=== PATIENT | male | born 2000 | race Caucasian/White ===

== ENCOUNTER 2022-06-23 08:56 | Emergency (ER) | payer MEDICAID, SELFPAY ==
--- NOTE | 2022-06-23 08:57 | ECG_ITS ---
[facility] Test Date: 2022-06-23 Pat Name: Eliel Frost Department: Room: Gender: Male Hand Finisher: : 2000 Requested By: Yanick Pelayo Order Number: [id number] Danica MD: Michael Bah M.D. Measurements Intervals [place] Rate: 73 P: 60 IN: 140 QRS: 58 QRSD: 95 T: 33 QT: 376 QTc: 415 Interpretive Statements SINUS RHYTHM No previous ECG available for comparison Electronically Signed On 06-23-2022 20:02:24 MARKET SPECIALIST by Michael Bah M.D. [id number]
[2022-06-23 09:23] VITALS: BP 117/75; PULSE 61; RESP 16; TEMP 36.9; O2SAT 100; BMI 22.6
[2022-06-23 10:03] LABS: Basophils % 0.5 %; Eosinophils % 0.7 %; Hematocrit 45.8 % (42.0-52.0); Hemoglobin 15.5 g/dL (11.7-16.6); Lymphocytes # 1.4 10^3/uL (0.8-4.8); Lymphocytes % 31.9 %; Mean Corpuscular HGB Conc 33.8 g/dL (30.0-36.0); Mean Corpuscular Hemoglobin 29.6 pg (28.0-34.0); Mean Corpuscular Volume 87.4 fl (80-94); Mean Platelet Volume 9.8 fL (7.4-10.4); Monocytes # 0.5 10^3/uL (0.2-0.9); Monocytes % 11.2 %; Neutrophils # 2.38 10^3/uL (1.8-7.7); Neutrophils % 55.5 %; Nucleated Red Blood Cells % 0 %; Platelet Count 212 10^3/cmm (130-400); Red Blood Count 5.24 10^6/uL (4.1-5.3); Red Cell Distribution Width 12.4 % (12.1-15.1); White Blood Count 4.3 10^3/uL (4.0-10.0)
[2022-06-23 10:15] LABS: Alanine Aminotransferase 13 U/L (0-41); Albumin Level 4.9 g/dL (3.5-5.2); Alkaline Phosphatase 91 U/L (40-130); Anion Gap 15.2 (5-19); Aspartate Amino Transferase 17 U/L (0-40); Blood Urea Nitrogen 15 mg/dL (6-20); Calcium 9.4 mg/dL (8.5-10.5); Carbon Dioxide 26 mmol/L (22-29); Chloride 101 mmol/L (98-107); Globulin 2.6 g/dL (1.3-4.6); Glomerular Filtration Rate 105.5 mL/min (90-130); Glucose 94 mg/dL (65-115); Osmolality Calculated 287 mOsm/kg (285-295); Potassium 4.2 mmol/L (3.5-5.1); Sodium 138 mmol/L (136-145); Total Bilirubin 0.5 mg/dL (0.15-1.2); Total Protein 7.5 g/dL (6.6-8.7)
[2022-06-23 10:54] VITALS: BP 129/74; PULSE 53; RESP 16; O2SAT 99
--- NOTE | 2022-06-23 10:54 | PC.NURSE ---
pt to triage for vital signs recheck. pt ambulatory with steady gait.
--- NOTE | 2022-06-23 11:45 | XR_ITS ---
WS: [id number] Portable AP upright chest, 06/23/2022 Clinical Data: Chest pain Comparison: None. Findings: No nodules, masses or effusions are seen. The heart is normal. The pulmonary vascularity is not increased. No pneumonia or pneumothorax is seen. XR/XR chest 1V portable [id number] Impression: Negative chest.
[2022-06-23 12:10] LABS: Troponin(5th) Baseline 6 ng/L (0-15)
--- NOTE | 2022-06-23 13:08 | W.ED.CHESTPA ---
Documented by User: Trista Dennis, PROGRAMMING DEVELOPMENT PROJECT MANAGER-C 06/23/22 13:38 HPI - Chest Pain General: Chief Complaint: Chest Pain Stated Complaint: chest pain Time Seen by Provider: 06/23/22 09:27 History of Present Illness: Patient is in today for chest pain. He reports that he has been having intermittent chest pain for a couple of days. He reports that it is always worse or noted when he is in the car driving or as a passenger. He states that it comes on and last for approximately 30 minutes over his left side chest is kind of dull in nature. He reports that he does have some tingling in his left arm and sometimes he has some shortness of breath but that does not last very long. He states that movement and deep breathing sometimes makes it worse. He states that he has not had any chest pain since last night. He reports that he had an episode last night and then he went to bed he woke up this morning and decided to come in and make sure it was not his heart. He does report that he has a history of anxiety. Associated symptoms: Reports dyspnea (Intermittent with chest pain); Deny abdominal pain, fever(s), nausea, palpitations, syncope or vomiting Review of Systems Const: Denies: fever(s), chills or body aches Eyes: Denies: change in vision or blurry vision ENMT: Denies: throat pain Card: Reports: chest pain; Denies: palpitations, irregular heart rhythm, lightheadedness or syncope Resp: Reports: dyspnea (Intermittent with chest pain); Denies: productive cough or non-productive cough GI: Denies: abdominal pain, nausea or vomiting : Denies: flank pain, dysuria, urinary frequency, urinary urgency or urinary hesitancy Musc: Denies: neck pain or back pain Neuro: Denies: headache(s), numbness in extremities or weakness in extremities Physical Exam Const: COMMON NORMALS: no acute distress, patient oriented x3 and alert GENERAL APPEARANCE: cooperative ORIENTATION/CONSCIOUSNESS: Yes awake, Yes oriented to person, Yes oriented to place and Yes oriented to time OTHER: Patient is sitting in the chair talking to a female. He is in no acute distress Eye: COMMON NORMALS: Equal, round and reactive pupils present, EOMs intact bilaterally and conjunctivae normal GENERAL EYE: appearance normal, both eyes and all related structures ALIGNMENT: Yes alignment normal CONJUNCTIVA: Yes conjunctivae normal SCLERA: sclerae normal PUPIL: Yes Equal, round and reactive pupils present Neck/C-Spine: COMMON NORMALS: full ROM Resp: COMMON NORMALS: normal respiratory effort, No retractions, No use of accessory muscles and clear to auscultation bilaterally EFFORT & INSPECTION: Yes symmetric chest movement AUSCULTATION: clear to auscultation bilaterally Cardio: COMMON NORMALS: regular rate, regular rhythm, S1 normal heart sound present and S2 normal heart sound present RATE: regular rate RHYTHM: regular rhythm HEART SOUNDS: S1 normal heart sound present and S2 normal heart sound present GI: COMMON NORMALS: Normal to inspection, nondistended, normoactive bowel sounds present, Soft to palpation, non-tender, No hepatosplenomegaly present, no masses and no bruits INSPECTION: Yes normal to inspection PALPATION: Yes Soft to palpation and Yes No hepatosplenomegaly present : COMMON NORMALS: Yes no CVA tenderness BLADDER/KIDNEY EXAM: Yes no CVA tenderness Back/Pelvis: COMMON NORMALS: no CVA tenderness Neuro: COMMON NORMALS: patient oriented x3 SENSORIUM/ORIENTATION: Yes alert, Yes oriented to person, Yes oriented to place and Yes oriented to time Psych: COMMON NORMALS: cooperative Course Vital Signs: Vital signs: Vital Signs Temperature 98.5 F 06/23/22 09:23 Pulse Rate 52 L 06/23/22 13:21 Respiratory Rate 16 06/23/22 10:54 Blood Pressure 129/74 06/23/22 10:54 Pulse Oximetry 99 06/23/22 13:21 Oxygen Delivery Me thod 06/23/22 09:23 MDM - Chest Pain Medical Decision Making 21-year-old male came in today for evaluation of chest pain. He has been having chest pain off and on for a couple of days last episode was last night. Patient has had 0 chest pain today. He is in no acute distress at the present. His troponins are negative, his EKG does not show any acute ST changes Labs are unremarkable. Physical exam findings are benign. I discussed the results of all testing with the patient and the female in the room. At this time I do not see any concerning cardiac findings and patient is symptom-free. We discussed other causes of chest pain including anxiety and musculoskeletal. Patient does state that anxiety could definitely be a factor. I suspect anxiety is a factor especially given that the patient's pain is always worse when he is driving because he states that he does become very anxious when driving. We discussed ongoing follow-up with primary care provider. We will discharge patient home. Return to the ER as needed for new or worsening symptoms. Patient is very agreeable with plan of care Lab Data 06/23/22 09:52 06/23/22 09:52 Radiology Impressions Chest X-Ray 06/23/22 11:45 Impression: Negative chest. Laboratory Results WBC 4.3 10^3/uL (4.0-10.0) 06/23/22 09:52 RBC 5.24 10^6/uL (4.1-5.3) 06/23/22 09:52 Hgb 15.5 g/dL (11.7-16.6) 06/23/22 09:52 Hct 45.8 % (42.0-52.0) 06/23/22 09:52 MCV 87.4 fl (80-94) 06/23/22 09:52 MCH 29.6 pg (28.0-34.0) 06/23/22 09:52 MCHC 33.8 g/dL (30.0-36.0) 06/23/22 09:52 RDW 12.4 % (12.1-15.1) 06/23/22 09:52 Plt Count 212 10^3/cmm (130-400) 06/23/22 09:52 MPV 9.8 fL (7.4-10.4) 06/23/22 09:52 Neut % (Auto) 55.5 % 06/23/22 09:52 Lymph % (Auto) 31.9 % 06/23/22 09:52 [place] % (Auto) 11.2 % 06/23/22 09:52 Eos % (Auto) 0.7 % 06/23/22 09:52 Baso % (Auto) 0.5 % 06/23/22 09:52 Neut # (Auto) 2.38 10^3/uL (1.8-7.7) 06/23/22 09:52 Lymph # (Auto) 1.4 10^3/uL (0.8-4.8) 06/23/22 09:52 [place] # (Auto) 0.5 10^3/uL (0.2-0.9) 06/23/22 09:52 Eos # (Auto) 0.0 10^3/uL (0.0-0.8) 06/23/22 09:52 Baso # (Auto) 0.0 10^3/uL (0.0-0.1) 06/23/22 09:52 Nucleated RBC % (auto) 0 % 06/23/22 09:52 Nucleated RBCs # 0.0 /100WBC 06/23/22 09:52 Sodium 138 mmol/L (136-145) 06/23/22 09:52 Potassium 4.2 mmol/L (3.5-5.1) 06/23/22 09:52 Chloride 101 mmol/L (98-107) 06/23/22 09:52 Carbon Dioxide 26 mmol/L (22-29) 06/23/22 09:52 Anion Gap 15.2 (5-19) 06/23/22 09:52 BUN 15 mg/dL (6-20) 06/23/22 09:52 Creatinine 0.9 mg/dL (0.7-1.2) 06/23/22 09:52 GFR Calculation 105.5 mL/min (90-130) 06/23/22 09:52 Glucose 94 mg/dL (65-115) 06/23/22 09:52 Calculated Osmolality 287 mOsm/kg (285-295) 06/23/22 09:52 Calcium 9.4 mg/dL (8.5-10.5) 06/23/22 09:52 Total Bilirubin 0.5 mg/dL (0.15-1.2) 06/23/22 09:52 AST 17 U/L (0-40) 06/23/22 09:52 ALT 13 U/L (0-41) 06/23/22 09:52 Alkaline Phosphatase 91 U/L (40-130) 06/23/22 09:52 Troponin T Baseline 6 ng/L (0-15) 06/23/22 09:52 Troponin T 120 Minute 6.00 ng/L (0-15) 06/23/22 12:10 Delta Troponin T 0 ABS# (0-10) 06/23/22 12:10 Total Protein 7.5 g/dL (6.6-8.7) 06/23/22 09:52 Albumin 4.9 g/dL (3.5-5.2) 06/23/22 09:52 Globulin 2.6 g/dL (1.3-4.6) 06/23/22 09:52 Discharge Plan Discharge Patient Disposition: Home Clinical Impression: Non-cardiac chest pain Condition: Stable Discharge Orders: Discharge ED (Routine); Ordered 06/23/22 Ordered By: Trista Dennis Discharge Diet: Usual diet Discharge Activity: Resume usual activity Patient Instructions: Chest Pain - Noncardiac Activity Restrictions/Additional Instructions: Your work-up today did not indicate any acute cardiac concerns. I recommend continue follow-up with primary care for further evaluation of other causes of noncardiac chest pain and continued monitoring and treatment. Return to the ER as needed for any new or worsening symptoms. Coding Level of Care Code ED It Associate for Chg Fwd Documented by User: Yanick Fuentes DO 06/23/22 15:09 HPI - Chest Pain General: Chief Complaint: Chest Pain Stated Complaint: chest pain Time Seen by Provider: 06/23/22 09:27 Course Vital Signs: Vital signs: Vital Signs Temperature 98.5 F 06/23/22 09:23 Pulse Rate 52 L 06/23/22 13:21 Respiratory Rate 16 06/23/22 10:54 Blood Pressure 129/74 06/23/22 10:54 Pulse Oximetry 99 06/23/22 13:21 Oxygen Delivery Me thod 06/23/22 09:23 MDM - Chest Pain Medical Decision Making 21-year-old male came in today for evaluation of chest pain. He has been having chest pain off and on for a couple of days last episode was last night. Patient has had 0 chest pain today. He is in no acute distress at the present. His troponins are negative, his EKG does not show any acute ST changes Labs are unremarkable. Physical exam findings are benign. I discussed the results of all testing with the patient and the female in the room. At this time I do not see any concerning cardiac findings and patient is symptom-free. We discussed other causes of chest pain including anxiety and musculoskeletal. Patient does state that anxiety could definitely be a factor. I suspect anxiety is a factor especially given that the patient's pain is always worse when he is driving because he states that he does become very anxious when driving. We discussed ongoing follow-up with primary care provider. We will discharge patient home. Return to the ER as needed for new or worsening symptoms. Patient is very agreeable with plan of care Chart reviewed and patient discussed with midlevel. Agree with assessment and plan. Lab Data 06/23/22 09:52 06/23/22 09:52 Radiology Impressions Chest X-Ray 06/23/22 11:45 Impression: Negative chest. Laboratory Results WBC 4.3 10^3/uL (4.0-10.0) 06/23/22 09:52 RBC 5.24 10^6/uL (4.1-5.3) 06/23/22 09:52 Hgb 15.5 g/dL (11.7-16.6) 06/23/22 09:52 Hct 45.8 % (42.0-52.0) 06/23/22 09:52 MCV 87.4 fl (80-94) 06/23/22 09:52 MCH 29.6 pg (28.0-34.0) 06/23/22 09:52 MCHC 33.8 g/dL (30.0-36.0) 06/23/22 09:52 RDW 12.4 % (12.1-15.1) 06/23/22 09:52 Plt Count 212 10^3/cmm (130-400) 06/23/22 09:52 MPV 9.8 fL (7.4-10.4) 06/23/22 09:52 Neut % (Auto) 55.5 % 06/23/22 09:52 Lymph % (Auto) 31.9 % 06/23/22 09:52 [place] % (Auto) 11.2 % 06/23/22 09:52 Eos % (Auto) 0.7 % 06/23/22 09:52 Baso % (Auto) 0.5 % 06/23/22 09:52 Neut # (Auto) 2.38 10^3/uL (1.8-7.7) 06/23/22 09:52 Lymph # (Auto) 1.4 10^3/uL (0.8-4.8) 06/23/22 09:52 [place] # (Auto) 0.5 10^3/uL (0.2-0.9) 06/23/22 09:52 Eos # (Auto) 0.0 10^3/uL (0.0-0.8) 06/23/22 09:52 Baso # (Auto) 0.0 10^3/uL (0.0-0.1) 06/23/22 09:52 Nucleated RBC % (auto) 0 % 06/23/22 09:52 Nucleated RBCs # 0.0 /100WBC 06/23/22 09:52 Sodium 138 mmol/L (136-145) 06/23/22 09:52 Potassium 4.2 mmol/L (3.5-5.1) 06/23/22 09:52 Chloride 101 mmol/L (98-107) 06/23/22 09:52 Carbon Dioxide 26 mmol/L (22-29) 06/23/22 09:52 Anion Gap 15.2 (5-19) 06/23/22 09:52 BUN 15 mg/dL (6-20) 06/23/22 09:52 Creatinine 0.9 mg/dL (0.7-1.2) 06/23/22 09:52 GFR Calculation 105.5 mL/min (90-130) 06/23/22 09:52 Glucose 94 mg/dL (65-115) 06/23/22 09:52 Calculated Osmolality 287 mOsm/kg (285-295) 06/23/22 09:52 Calcium 9.4 mg/dL (8.5-10.5) 06/23/22 09:52 Total Bilirubin 0.5 mg/dL (0.15-1.2) 06/23/22 09:52 AST 17 U/L (0-40) 06/23/22 09:52 ALT 13 U/L (0-41) 06/23/22 09:52 Alkaline Phosphatase 91 U/L (40-130) 06/23/22 09:52 Troponin T Baseline 6 ng/L (0-15) 06/23/22 09:52 Troponin T 120 Minute 6.00 ng/L (0-15) 06/23/22 12:10 Delta Troponin T 0 ABS# (0-10) 06/23/22 12:10 Total Protein 7.5 g/dL (6.6-8.7) 06/23/22 09:52 Albumin 4.9 g/dL (3.5-5.2) 06/23/22 09:52 Globulin 2.6 g/dL (1.3-4.6) 06/23/22 09:52 Discharge Plan Discharge Patient Disposition: Home Clinical Impression: Non-cardiac chest pain Condition: Stable Discharge Orders: Discharge ED (Routine); Ordered 06/23/22 Ordered By: Trista Dennis Discharge Diet: Usual diet Discharge Activity: Resume usual activity Patient Instructions: Chest Pain - Noncardiac Activity Restrictions/Additional Instructions: Your work-up today did not indicate any acute cardiac concerns. I recommend continue follow-up with primary care for further evaluation of other causes of noncardiac chest pain and continued monitoring and treatment. Return to the ER as needed for any new or worsening symptoms. Coding Level of Care Code ED It Associate for Suzan Lyle
[2022-06-23 13:09] LABS: Troponin 5 2HR Delta 0 ABS# (0-10)
[2022-06-23 13:21] VITALS: PULSE 52; O2SAT 99
== END 2022-06-23 13:22 | disposition home or self-care (01) ==
PROVIDERS: Family Medicine; Emergency Provider Nurse Practitioner Family
DX: R07.89 Other chest pain (principal)
CPT/HCPCS: 36415; 71045; 80053; 84484; 85025; 93005; 99285

== ENCOUNTER → 2023-05-05 09:53 | Outpatient (BNVA) | payer MEDICAID, SELFPAY | PROVIDERS: PCP Nurse Practitioner Family; Visit Provider Nurse Practitioner Family | DX: R22.42 Localized swelling, mass and lump, left lower limb; R19.02 Left upper quadrant abdominal swelling, mass and lump; M54.50 Low back pain, unspecified; G89.29 Other chronic pain | CPT/HCPCS: 81000 ==

== ENCOUNTER 2023-05-19 08:47 | Outpatient (CLI) | payer MEDICAID, SELFPAY ==
--- NOTE | 2023-05-19 09:00 | US_ITS ---
WS: [id number] ULTRASOUND SOFT TISSUES bilateral thigh. HISTORY: R22.42 - Localized swelling, mass and lump, left lower limb COMPARISON: None available. TECHNIQUE: 2-D and color Doppler imaging is submitted. Ultrasound is directed to the LEFT thigh at the palpable site. There is an elliptical shaped mass whi ch is nearly isoechoic to the adjacent muscles measuring 2.8 x 2.3 x 1.0 cm. No increased vascularity . RIGHT thigh: Nearly isoechoic mass corresponding to palpable area measures 1.4 x 0.7 x 2.5 cm. IMPRESSION: Bilateral thigh masses. There is at most consistent with lipomas.
== END 2023-05-19 08:48 | disposition home or self-care (01) ==
PROVIDERS: PCP Nurse Practitioner Family; Visit Provider Nurse Practitioner Family
DX: R22.42 Localized swelling, mass and lump, left lower limb (principal); R19.02 Left upper quadrant abdominal swelling, mass and lump
CPT/HCPCS: 76882

== ENCOUNTER → 2023-06-06 09:01 | Outpatient (BNVA) | payer MEDICAID, SELFPAY | PROVIDERS: PCP Nurse Practitioner Family; Referring Provider Nurse Practitioner Family; Visit Provider Surgery | DX: D37.4 Neoplasm of uncertain behavior of colon (principal) | CPT/HCPCS: 99204 ==

== ENCOUNTER → 2023-06-07 14:12 | Outpatient (BNVA) | payer MEDICAID, SELFPAY | PROVIDERS: PCP Nurse Practitioner Family; Visit Provider Nurse Practitioner Family | DX: R05.9 Cough, unspecified (principal) | CPT/HCPCS: 87426 ==

== ENCOUNTER 2023-06-20 06:33 | Day surgery (SDC) | payer MEDICAID, SELFPAY ==
[2023-06-20] VITALS (9 sets, daily range): BP systolic 110–130; BP diastolic 51–76; PULSE 57–88; RESP 9–23; TEMP 36.1–37.1; O2SAT 97–100; BMI 24.3
[2023-06-20] MEDS: vancomycin 1,500 MG/300 ML PIGGYBACK 200 MG IV (06:54)
[2023-06-20] MEDS: sodium chloride 0.9% 1,000 ML 30 ML IV (06:55)
--- NOTE | 2023-06-20 06:55 | W.PM.OPSUD ---
Surgery/Procedure H&P Update DATE OF PROCEDURE: June 20, 2023 DATE H&P PERFORMED: 06/06/23 H&P UPDATE INFORMATION: I have reviewed H&P completed within last 30 days, I have examined patient prior to procedure and No changes to prior documentation PLANNED PROCEDURE: Operation Date: 06/20/23 08:05 Proposed Procedures p Excision of subcutaneous mass of left flank 97000 and excision of subcutaneous mass bilateral thighs 27333(2x), D17.9(Not Applicable) - Jaswinder Carrasco DO
--- NOTE | 2023-06-20 07:51 | P.ANESASSM_ITS ---
Pre-Anesthetic Assessment Height/Weight: Height 1.8 m Weight 78.925 kg Temp Pulse Resp BP Pulse Ox O2 Del Method 98.5 F 63 18 125/76 97 Room Air 06/20/23 06:46 06/20/23 06:46 06/20/23 06:46 06/20/23 06:46 06/20/23 06:46 06/20/23 06:46 Operation Date: 06/20/23 08:05 Proposed Procedures p Excision of subcutaneous mass of left flank 42287 and excision of subcutaneous mass bilateral thighs 81152(2x), D17.9(Not Applicable) - Jaswinder Carrasco, DO Familial anesthetic complications: none Was Beta Saumya taken within 24 hours: N/A Was Clonidine taken within 24 hours: N/A Last intake: Intake Last Liquid Date 06/19/23 Last Liquid Time 19:00 Last Solid Date 06/19/23 Last Solid Time 22:00 Social Tobacco (vapes) and No alcohol Exam alert, oriented x 3 and regular rate & rhythm Airway Submandibular: within normal limits Cervical ROM: within normal limits Mallampati: Class II Dentition: chipped Anesthetic Plan ASA status: 2 Anesthesia: General Medications/Allergies Home Medications Medication Instructions Recorded Confirmed Last Taken Type ibuprofen 400 mg tablet 400 mg PO TID PRN pain 06/20/23 06/20/23 06/19/23 History Allergies Allergy/AdvReac Type Severity Reaction Status Date / Time amoxicillin Allergy ALGY-Hives Verified 06/07/23 14:36 Current Medications Generic Name Dose Route Start Last Admin Trade Name Freq PRN Reason Stop Dose Admin Vancomycin/PEG/NADA/Lysine/Water 1,500 mg in 300 mls @ 200 mls/hr 06/20/23 06:39 06/20/23 06:54 Vancocin IV 06/20/23 08:08 200 mls/hr [employer] Administration Protocol Sodium Chloride 1,000 mls @ 30 mls/hr 06/20/23 06:45 06/20/23 06:55 Sodium Chloride 0.9% IV 06/21/23 06:44 30 mls/hr .Q24H CARLOZ Administration PFSH Anesthesia Social History Smoking and tobacco/nicotine status: never used tobacco/nicotine Second hand smoke exposure: No Alcohol intake: never Substance/Drug Use: never Adopted: No Caregiver/support person: No Lives independently: Yes Household members: family Housing: House Marital status: Single Number of children: 1 Highest education level completed: 8th Grade service: No Current occupational status: employed Data Anesthesia Cardiac Studies: No Data to Display
[2023-06-20] MEDS: ondansetron 2 mg/ML SDV 2 mL 4 MG IVP (08:33)
[2023-06-20] MEDS: lidocaine-epi 1% 20 mL INJ INJECTION (08:59)
--- NOTE | 2023-06-20 09:18 | P.OP_ITS ---
Operative Report Date of procedure: June 20, 2023 Pre-op diagnosis: Subcutaneous masses of left flank and bilateral thighs Post-op diagnosis: same Procedure done: Excision of subcutaneous mass of left thigh measuring 2 cm in greatest diameter Excision of subcutaneous mass of the left flank measuring 1.5 cm in greatest diameter Excision of subcutaneous mass of right thigh measuring 2 cm in greatest diameter Implants: None Specimens removed/disposition: Excision of subcutaneous mass of left thigh measuring 2 cm in greatest diameter Excision of subcutaneous mass of the left flank measuring 1.5 cm in greatest diameter Excision of subcutaneous mass of right thigh measuring 2 cm in greatest diameter Surgeon: Jaswinder Carrasco DO Anesthesia: General and Local Estimated blood loss (mL): 5 Complications: None apparent Brief History: This is a very pleasant 22-year-old gentleman who presented my office with alyx nful subcutaneous masses of his left flank and bilateral thighs. Excision was indicated. The risk and benefits were explained and documented. Procedure: Patient was wheeled operative room placed on the OR table in the supine position. The left flank and left anterior thigh were inspected prepped and draped in usual sterile fashion. A timeout was performed. All present were in agreement. An LMA was placed by the department of anesthesia. 2% lidocaine with epinephrine was used to anesthetize the skin over the subcutaneous masses. Starting with the left flank, a 1.5 cm transverse incision was made over the subcutaneous mass. A lobulated fatty tumor measuring 1.5 cm in greatest diameter was manually expressed. Alveolar tissue was ligated with electrocautery. Dermis was approximated with 3-0 Vicryl and skin was closed with Dermabond. Next attention was brought to the left anterior thigh. 2% lidocaine with epinephrine was used to anesthetize the area over the subcutaneous mass. A 15 blade scalpel was used to make a 2 cm transverse incision over the subcutaneous mass. Hemostats were used to isolate a lobulated yellow fatty tumor which was then expelled manually. Alveolar tissue was ligated with electrocautery. Specimen was passed off. Specimen measured 2 centimeters in greatest diameter. Dermis was approximated with 3-0 Vicryl. Skin was closed with Dermabond. The skin was then washed and dried. The patient was then put into the right lateral decubitus position. The left posterior thigh was inspected prepped and draped in usual sterile fashion. 2% lidocaine with epinephrine was used to anesthetize the area over a subcutaneous mass. A 15 blade scalpel was used to make a 2 cm transverse incision over the subcutaneous mass. A 2 cm lobulated yellow fatty tumor was manually expressed and alveolar tissue was ligated with electrocautery. Dermis was approximated with 3-0 Vicryl in an interrupted fashion. Skin was closed with Dermabond. Patient tolerated procedure well.
--- NOTE | 2023-06-20 15:48 | ANE.PACU2 ---
Inpatient post-anesthesia follow up: Airway intact: Yes Vital signs: Temperature 98.8 F Pulse Rate 64 Respiratory Rate 18 Blood Pressure 111/57 Pulse Oximetry 99 Oxygen Delivery Me thod Room Air Oxygen Flow Rate 6 Fraction of Inspir ed Oxygen Hydration adequate: Yes Nausea and vomiting: No Pain level: 2 Mental status: Baseline
== END 2023-06-20 10:26 | disposition home or self-care (01) ==
PROVIDERS: PCP Nurse Practitioner Family; Visit Provider Surgery
PROC: (CPT 11402; principal; 2023-06-20 07:55)
DX: D17.24 Benign lipomatous neoplasm of skin and subcutaneous tissue of left leg (principal); D17.23 Benign lipomatous neoplasm of skin and subcutaneous tissue of right leg; D17.1 Benign lipomatous neoplasm of skin and subcutaneous tissue of trunk; F17.290 Nicotine dependence, other tobacco product, uncomplicated
CPT/HCPCS: 11402 ×3; 88307; J1200; J1885; J2250; J2405; J2704; J3010; J3370; J7030

== ENCOUNTER 2024-02-10 08:37 | Observation (INO) | payer MEDICAID, SELFPAY ==
[2024-02-10 08:53] VITALS: BP 143/71; PULSE 66; RESP 16; TEMP 36.8; O2SAT 100
[2024-02-10 09:32] LABS: Basophils % 0.2 %; Eosinophils % 0.2 %; Hematocrit 43.5 % (37-53); Lymphocytes # 1.6 10^3/uL (0.8-4.8); Lymphocytes % 14.3 %; Mean Corpuscular HGB Conc 33.1 g/dL (30-55); Mean Corpuscular Hemoglobin 29.8 pg (27-33); Mean Corpuscular Volume 90.1 fl (82-101); Mean Platelet Volume 9.2 fL (7.4-10.4); Monocytes # 0.8 10^3/uL (0.2-0.9); Monocytes % 6.6 %; Neutrophils # 8.92 10^3/uL (1.8-7.7); Neutrophils % 78.4 %; Nucleated Red Blood Cells % 0 %; Platelet Count 239 10^3/cmm (157-399); Red Blood Count 4.83 10^6/uL (3.85-5.65); Red Cell Distribution Width 11.9 % (12.1-15.1); White Blood Count 11.36 10^3/uL (3.29-11.43)
--- NOTE | 2024-02-10 09:33 | ED_ITS ---
HPI - Skin/Abscess/Foreign Bdy 2 General: Chief complaint: Skin/Abscess/Foreign Body Stated complaint: painful rash on butt Time Seen by Provider: 02/10/24 09:08 History of Present Illness: 23-year-old male presents emergency room complaining of pain at the superior aspect of the gluteal cleft for the last several days. Low-grade fever last night. He has been nauseous but exquisitely tender difficult to lay put direct pressure on it. No active drainage. He has not previously had surgery in the area or had episodes like this before. Associated symptoms: Reports fever(s); Deny chills Related Data Home Medications Medication Instructions Recorded Confirmed ibuprofen 400 mg tablet 400 mg PO TID PRN pain 06/20/23 09/15/23 Previous Rx's Medication Instructions Recorded docusate sodium 100 mg capsule 100 mg PO BID #14 caps 06/20/23 (Colace) hydrocodone 5 mg-acetaminophen 325 1 tab PO Q4H PRN pain #20 tabs 06/20/23 mg tablet clindamycin HCl 300 mg capsule 300 mg PO TID #30 caps 09/15/23 Allergies Allergy/AdvReac Type Severity Reaction Status Date / Time amoxicillin Allergy ALGY-Hives Verified 09/15/23 10:43 Review of Systems 2 Const: Reports: fever(s); Denies: chills Card: Denies: chest pain Resp: Denies: dyspnea GI: Denies: abdominal pain : Denies: dysuria, urinary frequency or urinary urgency Musc: Denies: neck pain or back pain Skin/Breast: Denies: rash PFSH ED 2 PFSH: Social History Smoking and tobacco/nicotine status: never used tobacco/nicotine Second hand smoke exposure: No Alcohol intake: never Substance/Drug Use: never Adopted: No Caregiver/support person: No Lives independently: Yes Household members: family Housing: House Marital status: Single Number of children: 1 Highest education level completed: 8th Grade service: No Current occupational status: employed Physical Exam 2 Const: GENERAL APPEARANCE: cooperative ORIENTATION/CONSCIOUSNESS: Yes awake, Yes oriented to person, Yes oriented to place and Yes oriented to time HENMT: COMMON NORMALS: normocephalic, atraumatic and hearing grossly normal bilaterally HEAD & SCALP: normocephalic and atraumatic Resp: COMMON NORMALS: normal respiratory effort, No retractions, No use of accessory muscles and clear to auscultation bilaterally AUSCULTATION: clear to auscultation bilaterally Cardio: COMMON NORMALS: regular rate, regular rhythm and No murmurs present (Cardio) RATE: regular rate RHYTHM: regular rhythm GI: COMMON NORMALS: Soft to palpation and No hepatosplenomegaly present A USCULTATION: Yes normoactive bowel sounds PALPATION: Yes Soft to palpation, No Tenderness to palpation present (GI), No Guarding due to palpation present (GI) and Yes No hepatosplenomegaly present : OTHER: Tenderness to the superior aspect of the gluteal cleft it is not overlying the coccyx however more suspicious of a perirectal abscess Extremity: COMMON NORMALS: normal to inspection, capillary refill normal, no clubbing, cyanosis or edema, no calf tenderness and no pedal edema Neuro: SENSORIUM/ORIENTATION: Yes oriented to person, Yes oriented to place and Yes oriented to time Skin: COMMON NORMALS: no rashes or lesions noted GENERAL SKIN EXAM: no rashes or lesions noted Course 2 Vital Signs: Vital signs: Vital Signs Temperature 98.2 F 02/10/24 08:53 Pulse Rate 74 02/10/24 14:12 Respiratory Rate 16 02/10/24 08:53 Blood Pressure 109/68 02/10/24 14:12 Pulse Oximetry 98 02/10/24 14:12 Oxygen Delivery Me thod Room Air 02/10/24 08:53 MDM - Skin/Abscess/Foreign Bdy Medicial Decision Making Perianal abscess noted. Patient started on IV antibiotics. Discussed with surgery will admit for incision and drainage. Orders written. Medical Records I reviewed the patient's medical records. Lab Data I reviewed the patient's lab results. 02/10/24 09:23 02/10/24 09:[address] 02/10/24 09:37 IMPRESSION: Findings consistent with 2.5 cm perianal abscess as described above. Laboratory Results WBC 11.36 10^3/uL (3.29-11.43) 02/10/24 09:23 RBC 4.83 10^6/uL (3.85-5.65) 02/10/24 09:23 Hgb 14.40 g/dL (11.27-16.99) 02/10/24 09:23 Hct 43.5 % (37-53) 02/10/24 09: MCV 90.1 fl (82-101) 02/10/24 09: MCH 29.8 pg (27-33) 02/10/24 09: MCHC 33.1 g/dL (30-55) 02/10/24 09: RDW 11.9 % (12.1-15.1) L 02/10/24 09: Plt Count 239 10^3/cmm (157-399) 02/10/24 09: MPV 9.2 fL (7.4-10.4) 02/10/24 09: Neut % (Auto) 78.4 % 02/10/24 09: Lymph % (Auto) 14.3 % 02/10/24 09: [place] % (Auto) 6.6 % 02/10/24 09: Eos % (Auto) 0.2 % 02/10/24 09: Baso % (Auto) 0.2 % 02/10/24 09: Neut # (Auto) 8.92 10^3/uL (1.8-7.7) H 02/10/24 09:23 Lymph # (Auto) 1.6 10^3/uL (0.8-4.8) 02/10/24 09:23 [place] # (Auto) 0.8 10^3/uL (0.2-0.9) 02/10/24 09:23 Eos # (Auto) 0.0 10^3/uL (0.0-0.8) 02/10/24 09: Baso # (Auto) 0.0 10^3/uL (0.0-0.1) 02/10/24 09:23 Nucleated RBC % (auto) 0 % 02/10/24 09: Nucleated RBCs # 0.0 /100WBC 02/10/24 09: Sodium 137 mmol/L (136-145) 02/10/24 09: Potassium 4.1 mmol/L (3.5-5.1) 02/10/24 09:23 Chloride 102 mmol/L (98-107) 02/10/24 09: Carbon Dioxide 26 mmol/L (22-29) 02/10/24 09:23 Anion Gap 13.1 (5-19) 02/10/24 09:23 BUN 13 mg/dL (6-20) 02/10/24 09:23 Creatinine 0.8 mg/dL (0.7-1.2) 02/10/24 09:23 GFR Calculation 118.8 mL/min (90-130) 02/10/24 09:23 Glucose 112 mg/dL (65-115) 02/10/24 09:23 Calculated Osmolality 285 mOsm/kg (285-295) 02/10/24 09:23 Calcium 9.0 mg/dL (8.5-10.5) 02/10/24 09:23 Total Bilirubin 0.6 mg/dL (0.15-1.2) 02/10/24 09:23 AST 13 U/L (0-40) 02/10/24 09:23 ALT 12 U/L (0-41) 02/10/24 09:23 Alkaline Phosphatase 81 U/L (40-130) 02/10/24 09:23 Total Protein 7.4 g/dL (6.6-8.7) 02/10/24 09:23 Albumin 4.3 g/dL (3.5-5.2) 02/10/24 09:23 Globulin 3.1 g/dL (1.3-4.6) 02/10/24 09:23 All radiology interpretation(s) finalized by discharge Discharge Plan Discharge Patient Disposition: Admitted As Inpatient Admit Provider: Helio Thompson Clinical Impression: Perianal abscess Condition: Stable Coding Level of Care Code ED Living Specialist for Edsong Dariela
--- NOTE | 2024-02-10 09:37 | CTR_ITS ---
PROCEDURE INFORMATION: Exam: CT Pelvis With Contrast Exam date and time: 02/10/2024 10:17 AM Age: 23 years old Clinical indication: Perianal pain; Additional info: Perirectal abscess TECHNIQUE: Imaging protocol: Computed tomography of the pelvis with contrast. Radiation optimization: All CT scans at this facility use at least one of these dose optimization techniques: automated exposure control; mA and/or kV adjustment per patient size (includes targeted exams where dose is matched to clinical indication); or iterative reconstruction. Contrast material: OMNIPAQUE 350; Contrast volume: 100 ml; Contrast route: INTRAVENOUS (IV); COMPARISON: US soft tissue/extremity [id number] 05/19/2023 8:55 AM RADIATION DOSE METRICS: Total DLP (mGy-cm): 344.72 FINDINGS: Intestine: Visualized small and large intestine are unremarkable. Appendix: Not adequately visualized. Intraperitoneal space: Unremarkable. No free air. No significant fluid collection. Lymph nodes: Unremarkable. No enlarged lymph nodes. Reproductive: Unremarkable as visualized. Urinary bladder: Unremarkable as visualized. Bones/joints: Unremarkable. No acute fracture. No dislocation. Soft tissues: 2.5 x 1.8 cm oval-shaped a thick-walled fluid collection situated along the inferior margin of the anal canal and extending inferiorly along the midline contained by the external anal sphincter consistent with perianal abscess. There is mild adjacent fat stranding. Remaining pelvic fat planes are preserved. Other findings: Eliel infarct mitigating taken VS CT/CT pelvis w con* [id number] IMPRESSION: Findings consistent with 2.5 cm perianal abscess as described above.
[2024-02-10 09:45] LABS: Alanine Aminotransferase 12 U/L (0-41); Albumin Level 4.3 g/dL (3.5-5.2); Alkaline Phosphatase 81 U/L (40-130); Anion Gap 13.1 (5-19); Aspartate Amino Transferase 13 U/L (0-40); Blood Urea Nitrogen 13 mg/dL (6-20); Carbon Dioxide 26 mmol/L (22-29); Chloride 102 mmol/L (98-107); Creatinine Clr Calc Pharmacy 153.1047; Globulin 3.1 g/dL (1.3-4.6); Glomerular Filtration Rate 118.8 mL/min (90-130); Glucose 112 mg/dL (65-115); Osmolality Calculated 285 mOsm/kg (285-295); Potassium 4.1 mmol/L (3.5-5.1); Sodium 137 mmol/L (136-145); Total Bilirubin 0.6 mg/dL (0.15-1.2); Total Protein 7.4 g/dL (6.6-8.7)
[2024-02-10 10:54] VITALS: BP 104/25; PULSE 78; O2SAT 98
[2024-02-10] MEDS: ciprofloxacin 400 MG/200 ML PREMIX 200 MG IV (10:59)
--- NOTE | 2024-02-10 12:00 | P.HP_ITS ---
Providers/Chief Complaint 2 Primary Care Provider: NEETU Zaidi Chief Complaint: painful rash on butt History of Present Illness Eliel Frost is a 23 year old male who presents with a perianal abscess. Patient reports noticing the abscess about a week ago. It is causing discomfort when he sits and works. He had a fever and decided to come to the emergency department. No prior history of any similar issues. Normal bowel movements. Medications/Allergies Home Medications Medication Instructions Recorded Confirmed Last Taken Type docusate sodium 100 mg capsule 100 mg PO BID #14 caps 06/20/23 09/15/23 Unknown Rx (Colace) hydrocodone 5 mg-acetaminophen 325 1 tab PO Q4H PRN pain #20 tabs 06/20/23 09/15/23 Unknown Rx mg tablet ibuprofen 400 mg tablet 400 mg PO TID PRN pain 06/20/23 09/15/23 06/19/23 History clindamycin HCl 300 mg capsule 300 mg PO TID #30 caps 09/15/23 09/15/23 Unknown Rx Allergies Allergy/AdvReac Type Severity Reaction Status Date / Time amoxicillin Allergy ALGY-Hives Verified 09/15/23 10:43 PFSH Acute 2 PFSH: Social History Smoking and tobacco/nicotine status: never used tobacco/nicotine Second hand smoke exposure: No Alcohol intake: never Substance/Drug Use: never Adopted: No Caregiver/support person: No Lives independently: Yes Household members: family Housing: House Marital status: Single Number of children: 1 Highest education level completed: 8th Grade service: No Current occupational status: employed Vitals/I&O/Wt Last Vital Signs Temp 98.2 F 02/10/24 08:53 Pulse 78 02/10/24 10:54 Resp 16 02/10/24 08:53 BP 104/25 02/10/24 10:54 Pulse Ox 98 02/10/24 10:54 O2 Del Method Room Air 02/10/24 08:53 Weight last 48 hrs Weight 170 lb Physical Exam 2 Narrative: Chest: Unlabored breathing room air. No lymphadenopathy. Heart: Regular rate and rhythm. Abdomen: Soft, nontender, nondistended. No masses or lymphadenopathy. Perineum: Perianal abscess in the posterior midline which is tender and indurated. Deferred RAUDEL. Data 02/10/24 09:23 02/10/24 09:23 A&P Assessment and plan (1) Perianal abscess: Plan 23-year-old male who presented with a perianal abscess. Will admit for pain control, IV antibiotics, exam under anesthesia of the rectum on 02/11/2024. N.p.o. after midnight Attestations 2 Medical Necessity Statement*: IV antibiotics, IV pain meds, surgical intervention Coding Level of Care Code 14487 Diagnoses Perianal abscess K61.0 Time Spent (min) 30
[2024-02-10] MEDS: metroNIDAZOLE IV 500 MG/100 ML PREMIX 100 MG IV (13:20)
[2024-02-10 14:12] VITALS: BP 109/68; PULSE 74; O2SAT 98
[2024-02-10] MEDS: sodium chloride 0.9% 1,000 ML 100 ML IV (14:40)
[2024-02-10] MEDS: ondansetron 2 mg/ML SDV 2 mL 4 MG IVP (19:47)
[2024-02-10 20:00] VITALS: BP 105/63; PULSE 74; RESP 15; TEMP 37.3; O2SAT 98
[2024-02-10] MEDS: morphine 4 mg/mL SDV 1 mL 2 MG IVP (20:40)
[2024-02-10] MEDS: acetaminophen 500 mg Tablet 1000 MG PO (23:15)
[2024-02-10] MEDS: cefTRIAXone 2,000 mg SDV 2000 MG IVP (23:15)
[2024-02-11] VITALS (16 sets, daily range): BP systolic 93–122; BP diastolic 47–80; PULSE 55–88; RESP 13–18; TEMP 36.4–37; O2SAT 97–100
[2024-02-11] MEDS: sodium chloride 0.9% 1,000 ML 100 ML IV (00:46)
--- NOTE | 2024-02-11 08:41 | P.ANESASSM_ITS ---
Pre-Anesthetic Assessment Height/Weight: Height 1.8 m Weight 71.894 kg Temp Pulse Resp BP Pulse Ox O2 Del Method 98.3 F 73 16 104/47 99 Room Air 02/11/24 07:25 02/11/24 08:19 02/11/24 08:19 02/11/24 08:19 02/11/24 08:19 02/11/24 08:19 Operation Date: 02/11/24 09:10 Proposed Procedures p Exam Under Anesthesia(Not Applicable) - Helio Thompson MD s Possible Perirectal Abscess(Not Applicable) - Helio Thompson MD Familial anesthetic complications: None Was Beta Saumya taken within 24 hours: N/A Was Clonidine taken within 24 hours: N/A Last intake: Intake Last Liquid Date 03/01/24 Last Solid Date 02/10/24 Social No alcohol and No tobacco Former smoker, Smokes Marijuana - last use day before arrival Exam alert, oriented x 3, clear to auscultation bilaterally and regular rate & rhythm Airway Mallampati: Class I Dentition: chipped Anesthetic Plan ASA status: 1 Anesthesia: General Risk of > 500 ml blood loss (7ml/kg in children): No Medications/Allergies Home Medications Medication Instructions Recorded Confirmed Last Taken Type docusate sodium 100 mg capsule 100 mg PO BID #14 caps 06/20/23 09/15/23 Unknown Rx (Colace) hydrocodone 5 mg-acetaminophen 325 1 tab PO Q4H PRN pain #20 tabs 06/20/23 09/15/23 Unknown Rx mg tablet ibuprofen 400 mg tablet 400 mg PO TID PRN pain 06/20/23 09/15/23 06/19/23 History clindamycin HCl 300 mg capsule 300 mg PO TID #30 caps 09/15/23 09/15/23 Unknown Rx Allergies Allergy/AdvReac Type Severity Reaction Status Date / Time amoxicillin Allergy ALGY-Hives Verified 09/15/23 10:43 Current Medications Generic Name Dose Route Start Last Admin Trade Name Freq PRN Reason Stop Dose Admin Acetaminophen 1,000 mg 02/10/24 21:15 02/10/24 23:15 Acetaminophen 500 Mg Tablet PO 1,000 mg Q8H PRN Administration MILD PAIN OR INCREASE TEMP Ceftriaxone Sodium 2,000 mg 02/11/24 00:01 02/10/24 23:15 Ceftriaxone 2,000 Mg Sdv IVP 2,000 mg Q24H CARLOZ Administration Protocol Sodium Chloride 1,000 mls @ 100 mls/hr 02/10/24 14:25 02/11/24 00:46 Sodium Chloride 0.9% IV 100 mls/hr .Q10H CARLOZ Administration Morphine Sulfate 2 mg 02/10/24 14:25 02/10/24 20:40 Morphine 4 Mg/Ml Sdv 1 Ml IVP 2 mg Q4H PRN Administration SEVERE PAIN Ondansetron HCl 4 mg 02/10/24 14:25 02/10/24 19:47 Ondansetron 2 Mg/Ml Sdv 2 Ml IVP 4 mg Q6H PRN Administration NAUSEA AND VOMITING PFSH Anesthesia Social History Smoking and tobacco/nicotine status: never used tobacco/nicotine Second hand smoke exposure: No Alcohol intake: never Substance/Drug Use: never Adopted: No Caregiver/support person: No Lives independently: Yes Household members: family Housing: House Marital status: Single Number of children: 1 Highest education level completed: 8th Grade service: No Current occupational status: employed Data Anesthesia 02/10/24 09:23 02/10/24 09:23 Short CBC 02/10/24 Range/Units 09:23 WBC 11.36 (3.29-11.43) 10^3/uL Hgb 14.40 (11.27-16.99) g/dL Hct 43.5 (37-53) % MCV 90.1 (82-101) fl Plt Count 239 (157-399) 10^3/cmm Neut % (Auto) 78.4 % Neut # (Auto) 8.92 H (1.8-7.7) 10^3/uL BMP 02/10/24 09:23 Sodium 137 Potassium 4.1 Chloride 102 Carbon Dioxide 26 BUN 13 Creatinine 0.8 Glucose 112 Calcium 9.0 Liver Function 02/10/24 Range/Units 09:23 Total Bilirubin 0.6 (0.15-1.2) mg/dL AST 13 (0-40) U/L ALT 12 (0-41) U/L Alkaline Phosphatase 81 (40-130) U/L Albumin 4.3 (3.5-5.2) g/dL Cardiac Studies: 2 No Data to Display
[2024-02-11] MEDS: sodium chloride 0.9% 1,000 ML 30 ML IV (09:00)
--- NOTE | 2024-02-11 09:12 | W.PM.OPSUD ---
Surgery/Procedure H&P Update DATE OF PROCEDURE: February 11, 2024 DATE H&P PERFORMED: 06/06/23 H&P UPDATE INFORMATION: I have reviewed H&P completed within last 30 days, I have examined patient prior to procedure and No changes to prior documentation PREOP DIAGNOSIS: Periappendiceal abscess PLANNED PROCEDURE: Operation Date: 02/11/24 09:10 Proposed Procedures p Exam Under Anesthesia(Not Applicable) - Helio Thompson MD s Possible Perirectal Abscess(Not Applicable) - Helio Thompson MD
[2024-02-11] MEDS: cefTRIAXone 2,000 mg SDV 2000 MG IVP (09:13)
[2024-02-11] MEDS: lidocaine 1% 10 ML INJ 20 ML XX (09:38)
--- NOTE | 2024-02-11 09:49 | PM.OP ---
Operative Report Date of procedure: February 11, 2024 Pre-op diagnosis: Perianal abscess Post-op diagnosis: same Post-op findings: 3 x 3 cm posterior midline perianal abscess. No fistula to rectum identified. Procedure done: Exam under anesthesia of the rectum, incision and drainage of perianal abscess Implants: None Specimens removed/disposition: Cultures sent Pathology: none sent Surgeon: Helio Thompson Surgeon: Helio Thompson MD Director Of [employer]ance [employer]: None Anesthesia: General Estimated blood loss (mL): 5 Complications: None Findings: 3 x 3 cm posterior midline perianal abscess. No fistula to rectum identified. Condition: stable Disposition: floor Brief History: 23-year-old male who presented with a posterior midline perianal abscess. Discussed risks and benefits and patient agreed to proceed to the operating room for exam under anesthesia of the rectum, incision and drainage of perianal abscess. Procedure: Patient was taken to the operating room after taking consent. Preoperative Rocephin was administered. SCDs were functioning. General anesthesia was induced. Patient was placed prone on the operating room table. Perineum was prepped and draped using Betadine. Patient was placed in prone jackknife. A Recinos retractor was placed and the rectum was examined. No fistula was identified. I then proceeded to incise the skin of the point of maximal fluctuance in the posterior midline. I performed a cruciate incision. Purulent fluid was drained about 10 cc. Cultures were sent. Loculations were broken down using a hemostat. I then proceeded to irrigate profusely with 500 cc of warm normal saline. The abscess cavity was packed using quarter inch iodoform. Dry gauze was applied on top and this was secured using mesh underwear. Patient woke up from anesthesia without any complications. Related Problem List Diagnoses (1) Perianal abscess:
--- NOTE | 2024-02-11 10:35 | ANE.PACU2 ---
Inpatient post-anesthesia follow up: Airway intact: Yes Vital signs: Temperature 97.8 F Pulse Rate 65 Respiratory Rate 18 Blood Pressure 107/80 Pulse Oximetry 98 Oxygen Delivery Me thod Room Air Oxygen Flow Rate Fraction of Inspir ed Oxygen Hydration adequate: Yes Nausea and vomiting: No Pain level: 1 Mental status: Baseline
[2024-02-11] MEDS: morphine 4 mg/mL SDV 1 mL 2 MG IVP (10:48)
[2024-02-11] MEDS: acetaminophen 500 mg Tablet 1000 MG PO (11:25)
[2024-02-11] MEDS: oxyCODONE 5 mg IR Tab/Cap PO (12:25)
--- NOTE | 2024-02-12 15:41 | P.PN_ITS ---
Subjective 2 Subjective: Persistent pain in perineum NPO since midnight Vitals/I&O/Wt Last Vital Signs Temp 97.9 F 02/11/24 13:19 Pulse 60 02/11/24 13:19 Resp 16 02/11/24 13:19 BP 104/67 02/11/24 13:19 Pulse Ox 98 02/11/24 13:19 O2 Del Method Room Air 02/11/24 11:45 Weight last 48 hrs Weight 158 lb 8 oz Physical Exam 2 Narrative: Chest: Unlabored breathing room air. No lymphadenopathy. Heart: Regular rate and rhythm. Abdomen: Soft, nontender, nondistended. No masses or lymphadenopathy. Perineum: Posterior midline perianal abscess present Data 02/10/24 09:23 02/10/24 09:23 Micro: Microbiology 02/11/24 09:42 Gram Stain - Final Other Source Anaerobic Culture - Preliminary Wound Culture - Preliminary A&P Assessment and plan (1) Perianal abscess: Plan Taking patient to the OR for exam after under anesthesia of the rectum, incision and drainage of perianal abscess Attestations 2 Medical Necessity Statement*: IV antibiotics, IV fluids, IV pain meds Coding Level of Care Code 84276 Diagnoses Perianal abscess K61.0 Time Spent (min) 30
--- NOTE | 2024-02-12 15:42 | P.DS_ITS ---
Discharge Providers Date of Admission: 02/10/24 11:57 Date of Discharge: February 12, 2024 Attending Provider at Admission: Helio Thompson MD Attending Provider at Discharge: Helio Thompson MD Primary Care Provider: NEETU Zaidi Diagnoses at Discharge Discharge Diagnosis (1) Perianal abscess: Status: Resolved Reason for Visit Reason for Visit: painful rash on butt Hospital Course Hospital Course 73-year-old male admitted with a perianal abscess. Treated with IV antibiotics and taken to the operating room the next need for exam under anesthesia of the rectum and perianal abscess incision and drainage. Patient did well postope ratively and was discharged Physical Exam Narrative: Chest: Unlabored breathing room air. No lymphadenopathy. Heart: Regular rate and rhythm. Abdomen: Soft, nontender, nondistended. No masses or lymphadenopathy. Perineum: Packing left perianal abscess cavity Discharge Data Studies Completed and Pending Completed Studies During Hospitalization Category Date Time Status CT pelvis w con* [id number] Stat Cat Scan 02/10/24 09:37 Completed Pending at discharge Category Date Time Status Anaerobic Culture Routine Lab 02/11/24 09:42 Results Wound Culture and Gram Stain Routine Lab 02/11/24 09:42 Results Radiology Impressions Pelvis CT 02/10/24 09:37 IMPRESSION: Findings consistent with 2.5 cm perianal abscess as described above. Laboratory Results WBC 11.36 10^3/uL (3.29-11.43) 02/10/24 09:23 RBC 4.83 10^6/uL (3.85-5.65) 02/10/24 09:23 Hgb 14.40 g/dL (11.27-16.99) 02/10/24 09:23 Hct 43.5 % (37-53) 02/10/24 09:23 MCV 90.1 fl (82-101) 02/10/24 09:23 MCH 29.8 pg (27-33) 02/10/24 09:23 MCHC 33.1 g/dL (30-55) 02/10/24 09:23 RDW 11.9 % (12.1-15.1) L 02/10/24 09:23 Plt Count 239 10^3/cmm (157-399) 02/10/24 09:23 MPV 9.2 fL (7.4-10.4) 02/10/24 09:23 Neut % (Auto) 78.4 % 02/10/24 09:23 Lymph % (Auto) 14.3 % 02/10/24 09:23 [place] % (Auto) 6.6 % 02/10/24 09:23 Eos % (Auto) 0.2 % 02/10/24 09:23 Baso % (Auto) 0.2 % 02/10/24 09:23 Neut # (Auto) 8.92 10^3/uL (1.8-7.7) H 02/10/24 09:23 Lymph # (Auto) 1.6 10^3/uL (0.8-4.8) 02/10/24 09:23 [place] # (Auto) 0.8 10^3/uL (0.2-0.9) 02/10/24 09:23 Eos # (Auto) 0.0 10^3/uL (0.0-0.8) 02/10/24 09:23 Baso # (Auto) 0.0 10^3/uL (0.0-0.1) 02/10/24 09:23 Nucleated RBC % (auto) 0 % 02/10/24 09: Nucleated RBCs # 0.0 /100WBC 02/10/24 09:23 Sodium 137 mmol/L (136-145) 02/10/24 09:23 Potassium 4.1 mmol/L (3.5-5.1) 02/10/24 09:23 Chloride 102 mmol/L (98-107) 02/10/24 09:23 Carbon Dioxide 26 mmol/L (22-29) 02/10/24 09:23 Anion Gap 13.1 (5-19) 02/10/24 09:23 BUN 13 mg/dL (6-20) 02/10/24 09:23 Creatinine 0.8 mg/dL (0.7-1.2) 02/10/24 09:23 GFR Calculation 118.8 mL/min (90-130) 02/10/24 09:23 Glucose 112 mg/dL (65-115) 02/10/24 09:23 Calculated Osmolality 285 mOsm/kg (285-295) 02/10/24 09:23 Calcium 9.0 mg/dL (8.5-10.5) 02/10/24 09:23 Total Bilirubin 0.6 mg/dL (0.15-1.2) 02/10/24 09:23 AST 13 U/L (0-40) 02/10/24 09:23 ALT 12 U/L (0-41) 02/10/24 09:23 Alkaline Phosphatase 81 U/L (40-130) 02/10/24 09:23 Total Protein 7.4 g/dL (6.6-8.7) 02/10/24 09:23 Albumin 4.3 g/dL (3.5-5.2) 02/10/24 09:23 Globulin 3.1 g/dL (1.3-4.6) 02/10/24 09:23 Vitals Last Vital Signs Temp 97.9 F 02/11/24 13:19 Pulse 60 02/11/24 13:19 Resp 16 02/11/24 13:19 BP 104/67 02/11/24 13:19 Pulse Ox 98 02/11/24 13:19 O2 Del Method Room Air 02/11/24 11:45 Discharge Plan Discharge Patient Disposition: Home Condition: Stable Prescriptions: New ibuprofen 400 mg tablet 400 mg PO Q6H 5 Days Qty: 20 0RF oxycodone 5 mg tablet 5 mg PO Q6H PRN (Reason: pain) 5 Days Qty: 10 0RF Continued clindamycin HCl 300 mg capsule 300 mg PO TID Qty: 30 0RF ibuprofen 400 mg Tablet 400 mg PO TID PRN (Reason: pain) Hold Instructions: Resume on 06/22/23. hydrocodone-acetaminophen 5-325 mg tablet 1 tab PO Q4H PRN (Reason: pain) Qty: 20 0RF Colace 100 mg capsule 100 mg PO BID Qty: 14 0RF Discharge Orders: Discharge Order (Routine); Ordered 02/11/24 Ordered By: Helio Thompson Referrals: Helio Thompson MD [Physician] - 2 weeks (We have notified Dr. Thompson's office of the need for a follow-up appointment to be scheduled. If you have not heard from them within the next 2 business days, please call them directly. ) Ilda Márquez FNP-C [Primary Care Provider] - (We have notified your physician's clinic of the need for a follow-up appointment to be scheduled. If you have not heard from them within the next 2 business days, please call them directly. ) Discharge Diet: Advance as tolerated Discharge Activity: Increase activity as tolerated Patient Instructions: Ibuprofen (By mouth), Acute Wound Care (DC), Rectal Abscess (GEN), Opioid Safety, Post Anesthesia Care Activity Restrictions/Additional Instructions: 1. No heavy exercise or lifting greater than 10lbs for 1 week. You may return to work after 1 week. 2. No pools, saunas, bathtubs for [address] if taking narcotics. 4. You may take over the counter ibuprofen 800mg every 6 hrs as for 5 days for pain. 5. Follow-up in clinic in 2 weeks. 6. Call the office if you have any concerns or questions. 7. You can remove the packing in the wound on 02/12/2024 and not replace it. Discharge Attestations Time Spent in Discharge Care*: greater than 30 min Quality Metrics Clinical Quality Measures [ No reported AMI, CVA or VTE this stay] Coding Level of Care Code Acute Code for Chg Fwd Diagnoses Perianal abscess K61.0 Time Spent (min) 30
== END 2024-02-11 13:20 | disposition home or self-care (01) ==
LOC: ER 09:35 → MEDSURG 13:43
PROVIDERS: Admitting Provider Student in an Organized Health Care Education/Training Program; Emergency Provider Family Medicine; PCP Nurse Practitioner Family; Visit Provider Student in an Organized Health Care Education/Training Program
PROC: (CPT 46050; principal; 2024-02-11 09:00)
PROC: (CPT 46040; 2024-02-11 09:00)
DX: K61.0 Anal abscess (principal); Z87.891 Personal history of nicotine dependence
CPT/HCPCS: 46050; 36415; 72193; 80053; 85025; 87070; 87075; 87205; 96365; 96367; 99285; G0378; J0696; J0744; J1100; J2250; J2270; J2405; J2704; J2710; J3010; J3490; J7030; Q9967

== ENCOUNTER → 2024-02-27 08:05 | Outpatient (BNVA) | payer MEDICAID, SELFPAY | PROVIDERS: PCP Nurse Practitioner Family; Visit Provider Student in an Organized Health Care Education/Training Program | DX: K61.0 Anal abscess (principal) | CPT/HCPCS: 99024 ==

== ENCOUNTER 2024-03-13 09:55 | Emergency (ER) | payer MEDICAID, SELFPAY ==
--- NOTE | 2024-03-13 10:17 | XR_ITS ---
WS: [id number] XR hand RT min 3V* [id number] REASON FOR EXAM: injury FINDINGS: No acute fracture identified. The joint spaces of the right hand are intact and well preserved. No soft tissue abnormality. XR/XR hand RT min 3V* [id number] IMPRESSION: No acute abnormality.
[2024-03-13 10:23] VITALS: BP 139/61; PULSE 52; RESP 17; TEMP 36.3; O2SAT 96
--- NOTE | 2024-03-13 10:27 | W.ED.GENADLT ---
HPI - General Adult General: Chief complaint: Extremity Injury, Upper Stated complaint: Right hand injury Time Seen by Provider: 03/13/24 10:22 Source: patient Mode of arrival: ambulatory Limitations: no limitations History of Present Illness: 23-year-old male who states that he had smashed his right hand with deformity 6 2 days ago he has a contusion over the dorsum of his right hand he has pain he rates a 2 out of 10 rates. He denies any other injuries Associated symptoms: Deny chest pain, dyspnea, headache(s), nausea, rash or vomiting Related Data Home Medications Medication Instructions Recorded Confirmed ibuprofen 400 mg tablet 400 mg PO TID PRN pain 06/20/23 02/28/24 Previous Rx's Medication Instructions Recorded docusate sodium 100 mg capsule 100 mg PO BID #14 caps 06/20/23 (Colace) hydrocodone 5 mg-acetaminophen 325 1 tab PO Q4H PRN pain #20 tabs 06/20/23 mg tablet clindamycin HCl 300 mg capsule 300 mg PO TID #21 caps 02/21/24 mupirocin 2 % topical ointment 1 applic topical BID #15 grams 02/21/24 Allergies Allergy/AdvReac Type Severity Reaction Status Date / Time amoxicillin Allergy ALGY-Hives Verified 02/28/24 14:06 Review of Systems Const: Denies: fever(s), chills, body aches or change in appetite ENMT: Denies: throat pain or dental pain Card: Denies: chest pain Resp: Denies: dyspnea GI: Denies: abdominal pain, nausea, vomiting or diarrhea Musc: Reports: extremity pain; Denies: neck pain or back pain Skin/Breast: Denies: rash Neuro: Denies: headache(s) PFSH ED PFSH: Social History Smoking and tobacco/nicotine status: never used tobacco/nicotine Second hand smoke exposure: No Alcohol intake: never Substance/Drug Use: never Adopted: No Caregiver/support person: No Lives independently: Yes Household members: family Housing: House Marital status: Single Number of children: 1 Highest education level completed: 8th Grade service: No Current occupational status: employed Physical Exam Const: COMMON NORMALS: no acute distress, patient oriented x3 and healthy appearing HENMT: COMMON NORMALS: normocephalic and atraumatic HEAD & SCALP: normocephalic and atraumatic Neck/C-Spine: COMMON NORMALS: full ROM and supple Chest: COMMONS NORMALS: normal inspection of the chest Resp: COMMON NORMALS: normal respiratory effort Cardio: COMMON NORMALS: regular rate, regular rhythm and No murmurs present (Cardio) RATE: regular rate RHYTHM: regular rhythm Extremity: COMMON NORMALS: full ROM Neuro: COMMON NORMALS: patient oriented x3, moves all extremities and no focal motor deficits Psych: COMMON NORMALS: mental status grossly normal, Normal thought process present and cooperative THOUGHT PROCESS: Normal thought process present Skin: COMMON NORMALS: no rashes or lesions noted and no wounds GENERAL SKIN EXAM: no rashes or lesions noted Course Vital Signs: Vital signs: Vital Signs Temperature 97.4 F L 03/13/24 10:23 Pulse Rate 52 L 03/13/24 10:23 Respiratory Rate 17 03/13/24 10:23 Blood Pressure 139/61 03/13/24 10:23 Pulse Oximetry 96 03/13/24 10:23 Oxygen Delivery Me thod Room Air 03/13/24 10:23 MDM - General Adult Medical Decision Making Patient presents with hand contusion x-rays negative patient stable for discharge follow-up PCP return if worsening. Medical Records I reviewed the patient's medical records. XR interpretation done by ED provider, pending radiology final review ED provider radiology interpretation(s): X-ray right hand no acute fracture Discharge Plan Discharge Patient Disposition: Home Clinical Impression: Contusion of hand, right Condition: Stable Prescriptions: No Action clindamycin HCl 300 mg capsule 300 mg PO TID Qty: 21 0RF mupirocin 2 % ointment 1 applic topical BID Qty: 15 0RF ibuprofen 400 mg Tablet 400 mg PO TID PRN (Reason: pain) Hold Instructions: Resume on 06/22/23. hydrocodone-acetaminophen 5-325 mg tablet 1 tab PO Q4H PRN (Reason: pain) Qty: 20 0RF Colace 100 mg capsule 100 mg PO BID Qty: 14 0RF Discharge Orders: Discharge ED (Routine); Ordered 03/13/24 Ordered By: Aleksandr Greco Referrals: Ilda Márquez FNP-C [Primary Care Provider] - Discharge Diet: Advance as tolerated Discharge Activity: Resume usual activity Patient Instructions: Contusion in Adults (ED) Stand Alone Forms: Work/School Release Coding Level of Care Code ED [employer] Operator for Suzan Lyle
[2024-03-13 10:45] VITALS: BP 139/61; PULSE 60; RESP 16; O2SAT 97
[2024-03-13 10:50] VITALS: BP 139/61; PULSE 60; O2SAT 97
== END 2024-03-13 10:51 | disposition home or self-care (01) ==
PROVIDERS: Emergency Provider Emergency Medicine; PCP Nurse Practitioner Family
DX: S60.221A Contusion of right hand, initial encounter (principal); X58.XXXA Exposure to other specified factors, initial encounter
CPT/HCPCS: 73130; 99283

== ENCOUNTER 2025-02-13 14:33 | Emergency (ER) | payer MEDICAID, SELFPAY ==
[2025-02-13 14:39] VITALS: BP 127/64; PULSE 54; RESP 16; O2SAT 99
--- NOTE | 2025-02-13 14:49 | ED_ITS ---
HPI - Animal Bite General: Chief Complaint: Animal Bite Stated Complaint: Lt hand dog bite Time Seen by Provider: 02/13/25 14:37 History of Present Illness: Patient is a 24-year-old gentleman that was in between 2 dogs, and laceration to the dorsum proximal part of his left ring finger. He has a vertical cut of approximately 2 cm. No other issues. Dog's shots are up-to-date. Patient states that he does not need a rabies shot. His tetanus is not up-to-date. Associated symptoms: Deny chills or fever(s) Related Data Previous Rx's ?Medication ?Instructions ?Recorded cefdinir 300 mg capsule 300 mg PO BID 10 days #20 ca ps 02/13/25 methocarbamol 500 mg tablet 500 mg PO Q8H PRN muscle s pasm #30 02/13/25 tabs Allergies Allergy/AdvReac Type Severity Reaction Status Date / Time amoxicillin Allergy ALGY-Hives Verified 04/11/24 14:16 Review of Systems General: Reports: 10 or more systems reviewed and unremarkable except in HPI and below Const: Denies: fever(s), chills or fatigue ENMT: Denies: nasal obstruction or post nasal drip Card: Denies: chest pain or palpitations Resp: Denies: dyspnea or non-productive cough GI: Denies: abdominal pain, nausea or vomiting : Denies: flank pain or difficulty urinating Musc: Reports: extremity pain, extremity swelling and joint redness; Denies: neck pain or back pain Psych: Denies: anxiety or depression [facility] ED PFSH: Medical History (Updated 02/13/25 @ 15:31 by ANGELA Gannon) No pertinent past medical history Surgical History (Updated 04/11/24 @ 14:58 by Prashant Porter NP) History of surgery on lower extremity right leg 2002- Social History Smoking and tobacco/nicotine status: never used tobacco/nicotine Second hand smoke exposure: No Alcohol intake: never Substance/Drug Use: never Adopted: No Caregiver/support person: No Lives independently: Yes Household members: family Housing: House Marital status: Single Number of children: 1 Highest education level completed: 8th Grade service: No Current occupational status: employed Physical Exam Const: COMMON NORMALS: no acute distress, average body habitus and patient oriented x3 HENMT: COMMON NORMALS: normocephalic HEAD & SCALP: normocephalic Eye: COMMON NORMALS: Equal, round and reactive pupils present and EOMs intact bilaterally PUPIL: Yes Equal, round and reactive pupils present Neck/C-Spine: COMMON NORMALS: full ROM and no lymphadenopathy Lymph: LYMPHATIC: no lymphadenopathy noted Chest: COMMONS NORMALS: normal inspection of the chest and normal palpation of entire chest wall Resp: COMMON NORMALS: normal respiratory effort, No retractions and No use of accessory muscles Cardio: COMMON NORMALS: regular rate and regular rhythm RATE: regular rate RHYTHM: regular rhythm GI: COMMON NORMALS: Normal to inspection, nondistended, normoactive bowel sounds present, Soft to palpation, non-tender and No hepatosplenomegaly present PALPATION: Yes Soft to palpation and Yes No hepatosplenomegaly present : COMMON NORMALS: Yes no CVA tenderness BLADDER/KIDNEY EXAM: Yes no CVA tenderness Back/Pelvis: COMMON NORMALS: no CVA tenderness Extremity: COMMON NORMALS: full ROM and capillary refill normal NARRATIVE EXTREMITY EXAM: Laceration left fourth dorsum proximal ring/fourth finger Neuro: COMMON NORMALS: patient oriented x3 Procedures Laceration Laceration 1: Site: upper extremity (left dorsum ring finger proximally) Side (If applicable): left Size (cm): 3 Description: linear Depth: simple, single layer Local Anesthetic: lidocaine 1% Amount of anesthesia used (mL): 3 Pre-repair: wound explored and irrigated extensively (500 ml) Skin layer closed with: nylon Size (cm): 4-0 Number of sutures: 1 Technique: simple, interrupted Course Vital Signs: Vital signs: Vital Signs Pulse Rate 54 L 02/13/25 14:39 Respiratory Rate 16 02/13/25 14:39 Blood Pressure 127/64 02/13/25 14:39 Pulse Oximetry 99 02/13/25 14:39 Oxygen Delivery Me thod Room Air 02/13/25 14:39 [facility] - Animal Bite Medical Decision Making Patient is a 24-year-old gentleman that had an animal bite just prior to arrival with a laceration, vertical, linear, 3 cm just prior to arrival. Discussed with patient that 1 stitch is plenty for this area given it was an animal bite. He is allergic to Augmentin, and therefore sent cefdinir for full course of therapy given an antibiotic. Vigorously wash this area with 500 mL of saline, prepped with Betadine. No tendon injury was seen, strength was intact on flexion and extension, however discussed with patient if there is a tendon injury he will need to follow-up with hand surgeon for further evaluation. Patient states understanding. I did also inform him that for work, he will need to cover this area, wash daily, and return here if he has red nests around the wound outside of the laceration, or drainage, or fever. Patient states understanding. Tetanus was updated. Patient claims all of the dogs are up-to-date on the rabies. I did discuss with patient that if they are not to come back to the ER right away since rabies is fatal. He states understanding Medical Records I reviewed the patient's medical records. No radiology studies performed this visit Discharge Plan Discharge Patient Disposition: Home Clinical Impression: Bite by animal Laceration of finger Qualifiers: Encounter type: initial encounter Finger: ring finger Damage to nail status: without damage Foreign body presence: without foreign body Laterality: left Qualified Code(s): S61.215A - Laceration without foreign body of left ring finger without damage to nail, initial encounter Condition: Stable Prescriptions: New cefdinir 300 mg capsule 300 mg PO BID 10 Days Qty: 20 0RF methocarbamol 500 mg tablet 500 mg PO Q8H PRN (Reason: muscle spasm) Qty: 30 0RF Discharge Orders: Discharge ED (Routine); Ordered 02/13/25 Ordered By: Nubia Collins Discharge Diet: Usual diet Discharge Activity: Resume usual activity Patient Instructions: Animal Bite (ED), Laceration (ED), Patient Portal & [employer]ivo Instructions Activity Restrictions/Additional Instructions: --Remove sutures in 10 days -Take antibiotics as instructed. Return to ED if you have increasing redness, drainage, temperature greater than 100.4 ?F -Wash your laceration daily with antibacterial soap. Cover when you are at work. You may utilize antibiotic ointment the first 24 hours, then Vaseline topically only -Eat active culture yogurt daily or take probiotic to avoid infectious diarrhea - You can follow-up with your doctor to remove this stitch, or come back to the ED. It is a new visit. - Antibiotic was sent to the pharmacy. Your muscle relaxer was sent to the pharmacy. Tylenol and ibuprofen as well for pain Print Language: South African Coding Level of Care Code ED Scout Leaser for Suzan Lyle
[2025-02-13] MEDS: tetanus-dipt-pertussis 0.5 mL SDV IM (14:56)
== END 2025-02-13 15:48 | disposition home or self-care (01) ==
PROVIDERS: Emergency Provider Physician Assistant
DX: S61.215A Laceration without foreign body of left ring finger without damage to nail, initial encounter (principal); W54.0XXA Bitten by dog, initial encounter; Z20.3 Contact with and (suspected) exposure to rabies; Z29.14 Encounter for prophylactic rabies immune globulin
CPT/HCPCS: 12002; 90471; 90715; 99283; J9999